=== PATIENT | male | born 1985 | race Caucasian/White ===

== ENCOUNTER 2016-06-06 16:28 | Emergency (ER) | payer MEDICARE | END 2016-06-06 18:25 | disposition home or self-care (01) | LOC: ER 16:28 | DX: S39.012A Strain of muscle, fascia and tendon of lower back, initial encounter (principal); R11.2 Nausea with vomiting, unspecified; I10 Essential (primary) hypertension; E66.01 Morbid (severe) obesity due to excess calories; Z88.1 Allergy status to other antibiotic agents; X50.0XXA Overexertion from strenuous movement or load, initial encounter | CPT/HCPCS: 96372; J1885 ==